=== PATIENT | female | born 1960 | race Caucasian/White ===

== ENCOUNTER 2021-11-22 14:04 | Inpatient (IN) | payer SELFPAY ==
[2021-11-22 14:32] LABS: #Basophils 0.1 thou/uL (0.0-0.2); #Eosinphils 0.2 thou/uL (0.0-0.7); #Lymphocytes 2.3 thou/uL (1.20-3.40); #Monocytes 0.6 thou/uL (0.11-0.59); %Basophils 1.1 % (0.0-1.0); %Eosinophils 2.2 % (0.0-10.0); %Lymphocytes 27.7 % (21.0-51.0); %Monocytes 7.2 % (0.0-10.0); %Neutrophils 61.9 % (42.0-75.0); Hemoglobin 14.9 g/dL (12.0-16.0); Mean Corpuscular HGB CONC 35.3 g/dL (32.0-36.0); Mean Corpuscular Hemoglobin 34.5 pg (27.0-31.0); Mean Corpuscular Volume 97.8 fL (78.0-98.0); Mean Platelet Volume 5.9 fL (7.4-10.4); Platelet Count 294 thou/uL (130-400); RBC Distribution Width 11.3 % (11.5-14.5); Red Blood Cell (RBC) Count 4.32 mill/uL (4.20-5.40); White Blood Cell (WBC) Count 8.1 thou/uL (4.8-10.8)
[2021-11-22 14:44] LABS: INR-International Normal Ratio 0.9; Prothrombin Time 12.5 sec (12.0-14.7)
[2021-11-22 14:45] LABS: PTT 40.5 sec (22.9-36.1)
[2021-11-22 15:01] LABS: Bacteria/HPF None Seen HPF (None Seen); Bilirubin Negative (Negative); Blood, Urine 1+ (Negative); Clarity Clear (Clear); Glucose, Urine (Dipstick) Normal (Negative); Ketone, Urine Negative (Negative); Leukocyte Negative Leu/uL (Negative); Nitrite Negative (Negative); Protein, Urine (Dipstick) Negative (Neg-Trace); Specific Gravity, Urine 1.022 (1.002-1.036); Squamous Epithelial 0-3 HPF (0-3); Urobilinogen Normal mg/dL (Less than 2); WBC/HPF 0-3 HPF (0-3); pH, Urine 5.5 (5.0-9.0)
[2021-11-22 15:48] LABS: ALT (SGPT) 7 U/L (8-55); AST (SGOT) 15 U/L (5-34); Albumin 4.1 g/dL (3.4-4.8); Alkaline Phosphatase 94 U/L (40-110); Anion Gap 14 mmol/L (10-20); BUN (Urea Nitrogen) 12 mg/dL (9.8-20.1); Bilirubin, Total 0.2 mg/dL (0.2-1.2); CK (CPK) 135 U/L (29-168); Calc. Creatinine Clearance 0 mL/min (70-130); Calcium 9.7 mg/dL (7.8-10.44); Carbon Dioxide 21 mmol/L (23-31); Chloride 105 mmol/L (98-107); Globulin 2.9 g/dL (2.4-3.5); Glucose 108 mg/dL (80-115); Potassium 3.9 mmol/L (3.5-5.1); Sodium 136 mmol/L (136-145)
[2021-11-22] MEDS ORDERED: Aspirin Chewable 81 MG TAB ONE (17:34)
[2021-11-22] MEDS ORDERED: Bisacodyl 10 MG SUPP PR PRN (17:45)
[2021-11-22] MEDS ORDERED: Acetaminophen 325 MG TAB PO PRN (17:45)
[2021-11-22] MEDS ORDERED: Ondansetron PF 4 MG/2 ML Vial IVP PRN (17:45)
[2021-11-22] MEDS ORDERED: Bisacodyl 5 MG TAB PO PRN (17:45)
[2021-11-22] MEDS ORDERED: Melatonin 3 MG TAB PO PRN (17:51)
[2021-11-22] MEDS ORDERED: hydrALAZINE 20 MG/ML VIAL SLOW IVP PRN (17:51)
[2021-11-22] MEDS ORDERED: Nitroglycerin 0.4 MG TAB (25 Tab Bottle) SL PRN (18:21)
[2021-11-22 18:44] LABS: Troponin I Less than 0.010 ng/mL (< 0.028)
[2021-11-22 19:05] VITALS: BMI 21.6
[2021-11-22] MEDS: Pantoprazole 40 MG VIAL IVP SCH (19:26)
[2021-11-22] MEDS: Nicotine 21 MG PATCH TD SCH (19:27)
[2021-11-22] MEDS: Sodium Chloride 0.9% 1,000 ML IV SCH (19:27)
[2021-11-22 21:47] LABS: Troponin I Less than 0.010 ng/mL (< 0.028)
[2021-11-22] MEDS: Enoxaparin Sodium 40 MG/0.4 ML SYRINGE SC SCH (21:52)
[2021-11-22 22:59] LABS: SARS-CoV-2 PCR by NAA Not Detected (NotDetected)
[2021-11-23 04:41] LABS: #Basophils 0.1 thou/uL (0.0-0.2); #Eosinphils 0.1 thou/uL (0.0-0.7); #Lymphocytes 2.5 thou/uL (1.20-3.40); #Monocytes 0.5 thou/uL (0.11-0.59); #Neutrophils 3.8 thou/uL (1.40-6.50); %Basophils 1.1 % (0.0-1.0); %Lymphocytes 35.9 % (21.0-51.0); %Monocytes 7.6 % (0.0-10.0); %Neutrophils 53.4 % (42.0-75.0); Hemoglobin 13.9 g/dL (12.0-16.0); Mean Corpuscular HGB CONC 34.3 g/dL (32.0-36.0); Mean Corpuscular Hemoglobin 33.8 pg (27.0-31.0); Mean Corpuscular Volume 98.5 fL (78.0-98.0); Mean Platelet Volume 5.7 fL (7.4-10.4); Platelet Count 258 thou/uL (130-400); RBC Distribution Width 11.4 % (11.5-14.5); Red Blood Cell (RBC) Count 4.11 mill/uL (4.20-5.40); White Blood Cell (WBC) Count 7.1 thou/uL (4.8-10.8)
[2021-11-23 05:18] LABS: ALT (SGPT) Less than 7 U/L (8-55); AST (SGOT) 13 U/L (5-34); Albumin 3.6 g/dL (3.4-4.8); Alkaline Phosphatase 77 U/L (40-110); Anion Gap 14 mmol/L (10-20); BUN (Urea Nitrogen) 12 mg/dL (9.8-20.1); Bilirubin, Total 0.2 mg/dL (0.2-1.2); Calc. Creatinine Clearance 58 mL/min (70-130); Carbon Dioxide 21 mmol/L (23-31); Cardiac Risk 4.7 (Less than 4.5); Chloride 109 mmol/L (98-107); Cholesterol 198 mg/dl (< 200 Desired); Globulin 2.4 g/dL (2.4-3.5); Glucose 103 mg/dL (80-115); HDL Cholesterol 42 mg/dL (>60 Neg Risk); LDL Cholesterol, Calculated 125 mg/dL; Potassium 4.1 mmol/L (3.5-5.1); Sodium 140 mmol/L (136-145); Triglycerides 153 mg/dL (Less than 150)
[2021-11-23] MEDS: Sodium Chloride 0.9% 1,000 ML IV SCH (07:41)
[2021-11-23] MEDS: Enoxaparin Sodium 40 MG/0.4 ML SYRINGE SC SCH ×2 (07:41→20:52)
[2021-11-23] MEDS: Pantoprazole 40 MG VIAL IVP SCH (07:41)
[2021-11-23] MEDS ORDERED: Regadenoson 0.4 MG/5 ML SYRINGE ONE (13:55)
[2021-11-23] MEDS: Nicotine 21 MG PATCH TD SCH (18:39)
[2021-11-24] MEDS: Enoxaparin Sodium 40 MG/0.4 ML SYRINGE SC SCH ×2 (08:37→19:45)
[2021-11-24] MEDS ORDERED: Communication Order-Pharmacy FS SCH (10:30)
[2021-11-24] MEDS: Metoprolol Tartrate 25 MG TAB PO SCH (16:23)
[2021-11-24] MEDS: Nicotine 21 MG PATCH TD SCH (16:27)
[2021-11-25] MEDS: Metoprolol Tartrate 25 MG TAB PO SCH ×2 (05:56→16:50)
[2021-11-25] MEDS ORDERED: Verapamil 5 MG/2 ML VIAL ONE (06:31)
[2021-11-25] MEDS ORDERED: Nitroglycerin 100MG/250ML BOT 250 ML ONE (06:31)
[2021-11-25] MEDS ORDERED: Heparin 10,000 UNITS/ 10 ML VIAL ONE (06:31)
[2021-11-25] MEDS ORDERED: Midazolam HCl 2 mg/2 ml Vial ONE (07:05)
[2021-11-25] MEDS ORDERED: Fentanyl 100 MCG/2 ML VIAL ONE (07:05)
[2021-11-25] MEDS ORDERED: Lidocaine 1% (PF) 30 ML VIAL ONE (07:07)
[2021-11-25] MEDS ORDERED: Enoxaparin Sodium 60 MG/0.6 ML SYRINGE SC SCH (08:15)
[2021-11-25] MEDS ORDERED: Iopamidol 370 76% 100 ML VIAL ONE (09:04)
[2021-11-25] MEDS ORDERED: Sodium Chloride 0.9% 200 ML IV PRN (09:13)
[2021-11-25] MEDS ORDERED: Nitroglycerin 0.4 MG TAB (25 Tab Bottle) SL PRN (09:13)
[2021-11-25] MEDS ORDERED: Acetaminophen/Codeine 30-300mg Tablet PO PRN ×2 (09:13)
[2021-11-25] MEDS: Enoxaparin Sodium 60 MG/0.6 ML SYRINGE SC SCH ×2 (10:03→21:49)
[2021-11-25] MEDS ORDERED: Communication Order-Pharmacy FS ONE (12:05)
[2021-11-25 12:11] LABS: Anion Gap 14 mmol/L (10-20); BUN (Urea Nitrogen) 10 mg/dL (9.8-20.1); Calc. Creatinine Clearance 57 mL/min (70-130); Calcium 9.7 mg/dL (7.8-10.44); Carbon Dioxide 23 mmol/L (23-31); Chloride 102 mmol/L (98-107); Glucose 98 mg/dL (80-115); Potassium 4.3 mmol/L (3.5-5.1); Sodium 135 mmol/L (136-145)
[2021-11-25] MEDS ORDERED: Communication Order-Pharmacy FS SCH (15:15)
[2021-11-25] MEDS: Nicotine 21 MG PATCH TD SCH (16:51)
[2021-11-26 08:30] LABS: Anion Gap 12 mmol/L (10-20); BUN (Urea Nitrogen) 11 mg/dL (9.8-20.1); Calc. Creatinine Clearance 57 mL/min (70-130); Calcium 9.8 mg/dL (7.8-10.44); Carbon Dioxide 26 mmol/L (23-31); Chloride 103 mmol/L (98-107); Glucose 101 mg/dL (80-115); Potassium 4.3 mmol/L (3.5-5.1); Sodium 137 mmol/L (136-145)
[2021-11-26] MEDS: Enoxaparin Sodium 60 MG/0.6 ML SYRINGE SC SCH ×2 (08:47→19:50)
[2021-11-26] MEDS: Metoprolol Tartrate 25 MG TAB PO SCH ×2 (08:48→17:43)
[2021-11-26] MEDS: Nicotine 21 MG PATCH TD SCH (17:43)
[2021-11-26] MEDS ORDERED: ceFAZolin (BATCH) 2 GM in Premix Bag 1 BAG IVPB SCH (20:00)
[2021-11-27 05:28] LABS: Anion Gap 12 mmol/L (10-20); BUN (Urea Nitrogen) 16 mg/dL (9.8-20.1); Calc. Creatinine Clearance 55 mL/min (70-130); Calcium 10.1 mg/dL (7.8-10.44); Carbon Dioxide 25 mmol/L (23-31); Chloride 101 mmol/L (98-107); Glucose 111 mg/dL (80-115); Potassium 4.3 mmol/L (3.5-5.1); Sodium 134 mmol/L (136-145)
[2021-11-27] MEDS: Metoprolol Tartrate 25 MG TAB PO SCH (07:05)
[2021-11-27] MEDS ORDERED: Albumin 5% 500 ML ONE (08:20)
[2021-11-27] MEDS ORDERED: Fentanyl 250 MCG/5 ML VIAL ONE ×2 (11:09→12:24)
[2021-11-27] MEDS ORDERED: Midazolam HCl 5 mg/5 ml Vial ONE (11:10)
[2021-11-27] MEDS ORDERED: Lidocaine 1% MPF 2 ML VIAL ONE (11:39)
[2021-11-27] MEDS ORDERED: Heparin 30,000 units/30 ml VIAL ONE (12:25)
[2021-11-27] MEDS ORDERED: Esmolol 100 MG/10 ML VIAL ONE (12:25)
[2021-11-27] MEDS ORDERED: Papaverine 60 MG/2 ML VIAL ONE (12:25)
[2021-11-27] MEDS ORDERED: Rocuronium Bromide 10 MG/ML (10ML VIAL) ONE (12:25)
[2021-11-27] MEDS ORDERED: Calcium Chloride 1 GM/10 ML Abboject SYRINGE ONE (12:25)
[2021-11-27] MEDS ORDERED: PHENYLEPHRINE-NS 100 MCG/ML 10 ML SYRINGE ONE (12:25)
[2021-11-27] MEDS ORDERED: PROPOFOL 200 MG/20 ML VIAL ONE (12:25)
[2021-11-27] MEDS ORDERED: Cardioplegic Soln 1,000 ML BAG ONE (12:25)
[2021-11-27] MEDS ORDERED: Aminocaproic Acid 5 GM/20 ML VIAL ONE (12:25)
[2021-11-27] MEDS ORDERED: Thrombin 5000 UNITS/5 ML VIAL ONE (12:25)
[2021-11-27] MEDS ORDERED: Protamine Sulfate 50 MG/5 ML VIAL ONE (12:25)
[2021-11-27] MEDS ORDERED: Bisacodyl 5 MG TAB PO PRN (14:04)
[2021-11-27] MEDS ORDERED: Guaifenesin DM 100-10/5 ML UDCUP PO PRN (14:04)
[2021-11-27] MEDS ORDERED: Bisacodyl 10 MG SUPP PR PRN (14:04)
[2021-11-27] MEDS ORDERED: Promethazine HCl 25 MG/ML VIAL IM PRN (14:04)
[2021-11-27] MEDS ORDERED: ceFAZolin (BATCH) 2 GM in Premix Bag 1 BAG IVPB SCH (14:04)
[2021-11-27] MEDS ORDERED: DOPamine 400 MG/D5W 250 ML 250 ML IVPB PRN (14:04)
[2021-11-27] MEDS ORDERED: Potassium Chloride 20 MEQ/100 ML PREMIX BAG IVPB PRN (14:04)
[2021-11-27] MEDS ORDERED: Hetastarch 6% 500 ML 500 ML IVPB PRN (14:04)
[2021-11-27] MEDS ORDERED: Post-Op Insulin Drip Protocol IVPB ONE (14:04)
[2021-11-27] MEDS ORDERED: Mag-Al 1200 mg/1200 mg/30 ML UDCUP PO PRN (14:04)
[2021-11-27] MEDS ORDERED: Norepinephrine 8 MG/0.9% NS 250 ML IVPB PRN (14:04)
[2021-11-27] MEDS ORDERED: hydrALAZINE 20 MG/ML VIAL SLOW IVP PRN (14:04)
[2021-11-27] MEDS ORDERED: Nitroglycerin 50 MG/250 ML BOT 250 ML IVPB PRN (14:04)
[2021-11-27] MEDS ORDERED: niCARdipine 25 MG in Sodium Chloride 0.9% 250 ML 250 ML IVPB PRN (14:04)
[2021-11-27] MEDS ORDERED: Acetaminophen 325 MG TAB PO PRN (14:04)
[2021-11-27 14:26] LABS: Actual Bicarbonate (HCO3a) 20.2 mEq/L (22-28); Base Excess (BEa) -4.1 mEq/L (-2.0 to +3.0); CO2 Tension 34.5 mmHg (35.0-45.0); Calcium, Ionized (arterial) 1.13 mmol/L (1.12-1.30); Carboxyhemoglobin (COHb) 0.1 gm% (0.0-3.0); Hemoglobin (Hb) 12.4 g/dL (12.0-16.0); O2 Tension (PaO2), arterial 134.4 mmHg (> 80.0); Potassium - ABG Lab 4.24 mmol/L (3.70-5.30); pH, Arterial 7.39 (7.35-7.45)
[2021-11-27 14:28] LABS: ALV-art Gradient 250.275 mmHg (0-20); Puncture Site Arterial Line
[2021-11-27] MEDS ORDERED: HUMULIN R 100 UNITS in Sodium Chloride 0.9% 100 ML IVPB SCH (14:30)
[2021-11-27] MEDS ORDERED: Dextrose 5% in Water 1,000 ML IV PRN (14:30)
[2021-11-27] MEDS ORDERED: Dextrose 50% Abboject 50 ML SYRINGE SLOW IVP PRN (14:30)
[2021-11-27 14:33] LABS: #Eosinphils 0.1 thou/uL (0.0-0.7); #Lymphocytes 1.4 thou/uL (1.20-3.40); #Monocytes 0.4 thou/uL (0.11-0.59); #Neutrophils 6.8 thou/uL (1.40-6.50); %Basophils 0.4 % (0.0-1.0); %Lymphocytes 16.1 % (21.0-51.0); %Neutrophils 77.6 % (42.0-75.0); Hemoglobin 12.2 g/dL (12.0-16.0); Mean Corpuscular HGB CONC 34.2 g/dL (32.0-36.0); Mean Corpuscular Hemoglobin 33.5 pg (27.0-31.0); Mean Platelet Volume 5.8 fL (7.4-10.4); Platelet Count 240 thou/uL (130-400); Red Blood Cell (RBC) Count 3.64 mill/uL (4.20-5.40); White Blood Cell (WBC) Count 8.7 thou/uL (4.8-10.8)
[2021-11-27] MEDS: Lactated Ringer's 1,000 ML IV SCH (14:42)
[2021-11-27 14:43] LABS: Prothrombin Time 13.5 sec (12.0-14.7)
[2021-11-27 14:45] LABS: PTT 46.7 sec (22.9-36.1)
[2021-11-27] MEDS: Morphine 2 MG/ML VIAL SLOW IVP PRN ×2 (14:52→15:23)
[2021-11-27 15:10] LABS: Anion Gap 10 mmol/L (10-20); BUN (Urea Nitrogen) 13 mg/dL (9.8-20.1); Calc. Creatinine Clearance 60 mL/min (70-130); Calcium 8.3 mg/dL (7.8-10.44); Carbon Dioxide 22 mmol/L (23-31); Chloride 108 mmol/L (98-107); Glucose 115 mg/dL (80-115); Potassium 4.3 mmol/L (3.5-5.1); Sodium 136 mmol/L (136-145)
[2021-11-27] MEDS: Fentanyl 100 MCG/2 ML VIAL SLOW IVP PRN ×2 (15:10→21:21)
[2021-11-27] MEDS: Insulin Regular 300 UNITS/3 ML VIAL SC PRN ×2 (16:09→19:51)
[2021-11-27] MEDS: Ketorolac Tromethamine 30 MG/ML VIAL IVP SCH ×2 (17:38→23:18)
[2021-11-27] MEDS: ceFAZolin (BATCH) 2 GM in Premix Bag 1 BAG IVPB SCH (19:46)
[2021-11-27] MEDS: Ondansetron PF 4 MG/2 ML Vial IVP PRN (20:03)
[2021-11-27 20:46] LABS: Hemoglobin 11.4 g/dL (12.0-16.0)
[2021-11-27 21:00] LABS: Potassium 4.2 mmol/L (3.5-5.1)
[2021-11-27] MEDS ORDERED: Famotidine/PF 20 mg/2ml Vial SLOW IVP SCH (21:00)
[2021-11-27 23:09] LABS: Actual Bicarbonate (HCO3a) 19.9 mEq/L (22-28); Base Excess (BEa) -5.1 mEq/L (-2.0 to +3.0); CO2 Tension 37.2 mmHg (35.0-45.0); Calcium, Ionized (arterial) 1.14 mmol/L (1.12-1.30); Carboxyhemoglobin (COHb) 0.1 gm% (0.0-3.0); Hemoglobin (Hb) 11.9 g/dL (12.0-16.0); O2 Tension (PaO2), arterial 84.9 mmHg (> 80.0); Potassium - ABG Lab 4.34 mmol/L (3.70-5.30); pH, Arterial 7.35 (7.35-7.45)
[2021-11-27 23:26] LABS: Puncture Site Arterial Line
[2021-11-27] MEDS: Simvastatin 10 MG TAB PO SCH (23:59)
[2021-11-28] MEDS: Lactated Ringer's 1,000 ML IV SCH ×2 (02:03→15:56)
[2021-11-28] MEDS: traMADol HCl 50 MG TAB PO PRN ×4 (03:40→20:16)
[2021-11-28] MEDS: ceFAZolin (BATCH) 2 GM in Premix Bag 1 BAG IVPB SCH ×2 (03:40→11:25)
[2021-11-28 04:02] LABS: #Eosinphils 0.1 thou/uL (0.0-0.7); #Lymphocytes 1.6 thou/uL (1.20-3.40); #Monocytes 0.7 thou/uL (0.11-0.59); %Basophils 0.4 % (0.0-1.0); %Eosinophils 0.6 % (0.0-10.0); %Monocytes 7.3 % (0.0-10.0); %Neutrophils 74.7 % (42.0-75.0); Hemoglobin 11.4 g/dL (12.0-16.0); Mean Corpuscular Hemoglobin 33.6 pg (27.0-31.0); Mean Corpuscular Volume 98.8 fL (78.0-98.0); Mean Platelet Volume 5.9 fL (7.4-10.4); Platelet Count 256 thou/uL (130-400); Red Blood Cell (RBC) Count 3.39 mill/uL (4.20-5.40); White Blood Cell (WBC) Count 9.4 thou/uL (4.8-10.8)
[2021-11-28 04:19] LABS: Anion Gap 12 mmol/L (10-20); BUN (Urea Nitrogen) 13 mg/dL (9.8-20.1); Calc. Creatinine Clearance 62 mL/min (70-130); Calcium 8.6 mg/dL (7.8-10.44); Carbon Dioxide 21 mmol/L (23-31); Chloride 108 mmol/L (98-107); Glucose 98 mg/dL (80-115); Potassium 4.3 mmol/L (3.5-5.1); Sodium 137 mmol/L (136-145)
[2021-11-28] MEDS: Ketorolac Tromethamine 30 MG/ML VIAL IVP SCH ×3 (06:16→18:05)
[2021-11-28] MEDS: Aspirin 325 MG TAB PO SCH (07:38)
[2021-11-28] MEDS: Famotidine 20 MG TAB PO SCH ×2 (07:38→21:32)
[2021-11-28] MEDS: Polyethylene Glycol 3350 17 GM Packet PO SCH (08:46)
[2021-11-28] MEDS ORDERED: Mineral Oil ENEMA PR PRN (10:11)
[2021-11-28] MEDS ORDERED: Nitroglycerin 0.4 MG TAB (25 Tab Bottle) SL PRN (10:11)
[2021-11-28] MEDS: Ondansetron PF 4 MG/2 ML Vial IVP PRN (11:25)
[2021-11-28] MEDS ORDERED: Insulin Glargine 30 UNITS/0.3 ML VIAL SC PRN (14:26)
[2021-11-28] MEDS: Fentanyl 100 MCG/2 ML VIAL SLOW IVP PRN ×2 (15:24→22:19)
[2021-11-28] MEDS: Simvastatin 10 MG TAB PO SCH (21:33)
[2021-11-29] MEDS: Ketorolac Tromethamine 30 MG/ML VIAL IVP SCH ×4 (00:03→17:47)
[2021-11-29] MEDS: traMADol HCl 50 MG TAB PO PRN ×3 (09:37→20:55)
[2021-11-29] MEDS: Aspirin 325 MG TAB PO SCH (09:37)
[2021-11-29] MEDS: Famotidine 20 MG TAB PO SCH ×2 (09:37→20:55)
[2021-11-29] MEDS: Furosemide 40 MG TAB PO SCH (09:37)
[2021-11-29] MEDS: Polyethylene Glycol 3350 17 GM Packet PO SCH (09:38)
[2021-11-29] MEDS ORDERED: Metoprolol Tartrate 25 MG TAB PO SCH (10:15)
[2021-11-29] MEDS: Simvastatin 10 MG TAB PO SCH (20:55)
[2021-11-29] MEDS: buPROPion HCl 100 MG TAB PO SCH (20:55)
[2021-11-29] MEDS: Metoprolol Tartrate 25 MG TAB PO SCH (20:55)
[2021-11-30] MEDS: Ketorolac Tromethamine 30 MG/ML VIAL IVP SCH ×4 (00:16→18:15)
[2021-11-30 09:03] LABS: #Eosinphils 0.1 thou/uL (0.0-0.7); #Lymphocytes 1.5 thou/uL (1.20-3.40); #Monocytes 0.7 thou/uL (0.11-0.59); #Neutrophils 5.8 thou/uL (1.40-6.50); %Basophils 0.3 % (0.0-1.0); %Eosinophils 1.4 % (0.0-10.0); %Lymphocytes 18.4 % (21.0-51.0); %Neutrophils 71.9 % (42.0-75.0); Hemoglobin 12.5 g/dL (12.0-16.0); Mean Corpuscular HGB CONC 33.4 g/dL (32.0-36.0); Mean Corpuscular Hemoglobin 33.9 pg (27.0-31.0); Mean Platelet Volume 5.9 fL (7.4-10.4); Platelet Count 281 thou/uL (130-400); RBC Distribution Width 11.1 % (11.5-14.5); Red Blood Cell (RBC) Count 3.69 mill/uL (4.20-5.40); White Blood Cell (WBC) Count 8.1 thou/uL (4.8-10.8)
[2021-11-30 09:19] LABS: Anion Gap 16 mmol/L (10-20); BUN (Urea Nitrogen) 15 mg/dL (9.8-20.1); Calc. Creatinine Clearance 60 mL/min (70-130); Calcium 9.4 mg/dL (7.8-10.44); Carbon Dioxide 22 mmol/L (23-31); Chloride 102 mmol/L (98-107); Glucose 94 mg/dL (80-115); Potassium 3.9 mmol/L (3.5-5.1); Sodium 136 mmol/L (136-145)
[2021-11-30] MEDS: Aspirin 325 MG TAB PO SCH (10:25)
[2021-11-30] MEDS: Metoprolol Tartrate 25 MG TAB PO SCH ×2 (10:25→20:31)
[2021-11-30] MEDS: buPROPion HCl 100 MG TAB PO SCH (10:25)
[2021-11-30] MEDS: Famotidine 20 MG TAB PO SCH ×2 (10:25→20:31)
[2021-11-30] MEDS: Furosemide 40 MG TAB PO SCH (10:26)
[2021-11-30] MEDS: Polyethylene Glycol 3350 17 GM Packet PO SCH (10:26)
[2021-11-30] MEDS: traMADol HCl 50 MG TAB PO PRN ×2 (10:31→20:32)
[2021-11-30] MEDS: Simvastatin 10 MG TAB PO SCH (20:31)
[2021-12-01] MEDS: Ketorolac Tromethamine 30 MG/ML VIAL IVP SCH ×4 (00:04→17:23)
[2021-12-01] MEDS: Aspirin 325 MG TAB PO SCH (09:00)
[2021-12-01] MEDS: Famotidine 20 MG TAB PO SCH ×2 (09:01→20:43)
[2021-12-01] MEDS: Furosemide 40 MG TAB PO SCH (09:01)
[2021-12-01] MEDS: Bupropion 150 MG XL TAB PO SCH (09:01)
[2021-12-01] MEDS: Metoprolol Tartrate 25 MG TAB PO SCH ×2 (09:02→20:43)
[2021-12-01] MEDS: Polyethylene Glycol 3350 17 GM Packet PO SCH (09:04)
[2021-12-01] MEDS: Simvastatin 10 MG TAB PO SCH (20:55)
[2021-12-01] MEDS: traMADol HCl 50 MG TAB PO PRN (20:55)
[2021-12-02] MEDS: Ketorolac Tromethamine 30 MG/ML VIAL IVP SCH ×3 (00:34→12:00)
[2021-12-02] MEDS: Bupropion 150 MG XL TAB PO SCH (09:29)
[2021-12-02] MEDS: Metoprolol Tartrate 25 MG TAB PO SCH (09:29)
[2021-12-02] MEDS: Furosemide 40 MG TAB PO SCH (09:29)
[2021-12-02] MEDS: Aspirin 325 MG TAB PO SCH (09:31)
[2021-12-02] MEDS: Polyethylene Glycol 3350 17 GM Packet PO SCH (09:31)
[2021-12-02] MEDS: Famotidine 20 MG TAB PO SCH (09:31)
[2021-12-02 14:39] VITALS: BP 140/72; TEMP 97.2
[2021-12-03 13:39] LABS: Actual Bicarbonate (HCO3a) 22.4 mEq/L (22-28); Analyzer IN Cardio OR; Base Excess (BEa) -2.6 mEq/L (-2.0 to +3.0); CO2 Tension 39.4 mmHg (35.0-45.0); Calcium, Ionized (arterial) 1.13 mmol/L (1.12-1.30); Carboxyhemoglobin (COHb) 0.1 gm% (0.0-3.0); Hemoglobin (Hb) 12.1 g/dL (12.0-16.0); O2 Tension (PaO2), arterial 412.7 mmHg (> 80.0); Potassium - ABG Lab 4.17 mmol/L (3.70-5.30); pH, Arterial 7.37 (7.35-7.45)
[2021-12-03 13:39] LABS: Actual Bicarbonate (HCO3a) 22.1 mEq/L (22-28); Analyzer IN Cardio OR; Base Excess (BEa) -2.4 mEq/L (-2.0 to +3.0); CO2 Tension 37.5 mmHg (35.0-45.0); Calcium, Ionized (arterial) 1.16 mmol/L (1.12-1.30); Carboxyhemoglobin (COHb) 0.5 gm% (0.0-3.0); Hemoglobin (Hb) 12.5 g/dL (12.0-16.0); O2 Tension (PaO2), arterial 315.1 mmHg (> 80.0); Potassium - ABG Lab 4.09 mmol/L (3.70-5.30); pH, Arterial 7.39 (7.35-7.45)
[2021-12-03 13:40] LABS: Puncture Site Arterial Line
[2021-12-03 13:40] LABS: Analyzer IN Cardio OR; Base Excess (BEa) 0.1 mEq/L (-2.0 to +3.0); CO2 Tension 32.2 mmHg (35.0-45.0); Calcium, Ionized (arterial) 1.15 mmol/L (1.12-1.30); Carboxyhemoglobin (COHb) 0.7 gm% (0.0-3.0); Hemoglobin (Hb) 13.2 g/dL (12.0-16.0); O2 Tension (PaO2), arterial 434.7 mmHg (> 80.0); Potassium - ABG Lab 3.99 mmol/L (3.70-5.30); Puncture Site Arterial Line; pH, Arterial 7.47 (7.35-7.45)
[2021-12-03 13:41] LABS: Puncture Site Arterial Line
== END 2021-12-02 14:40 | disposition home or self-care (01) | DRG 234 ==
LOC: ERS 14:04 → 2SW 17:39 → OBSVTOIN 11-24 16:49 → CCU 11-27 10:53 → 2NO 11-28 10:59
PROVIDERS: ADMIT Internal Medicine; ATTEND Internal Medicine
PROC: 4A023N7 Measurement of Cardiac Sampling and Pressure, Left Heart, Percutaneous Approach (ICD-10-PCS; 2021-11-25)
PROC: B2111ZZ Fluoroscopy of Multiple Coronary Arteries using Low Osmolar Contrast (ICD-10-PCS; 2021-11-25)
PROC: B2151ZZ Fluoroscopy of Left Heart using Low Osmolar Contrast (ICD-10-PCS; 2021-11-25)
PROC: 02HV33Z Insertion of Infusion Device into Superior Vena Cava, Percutaneous Approach (ICD-10-PCS; principal; 2021-11-27)
PROC: 02100Z9 Bypass Coronary Artery, One Artery from Left Internal Mammary, Open Approach (ICD-10-PCS; 2021-11-27)
DX: I25.110 Atherosclerotic heart disease of native coronary artery with unstable angina pectoris (principal); K92.1 Melena; I25.89 Other forms of chronic ischemic heart disease; G89.29 Other chronic pain; F17.210 Nicotine dependence, cigarettes, uncomplicated; J44.9 Chronic obstructive pulmonary disease, unspecified; H53.2 Diplopia; R51.9 Headache, unspecified; M54.50 Low back pain, unspecified; R31.0 Gross hematuria; E78.2 Mixed hyperlipidemia; R09.89 Other specified symptoms and signs involving the circulatory and respiratory systems; E78.00 Pure hypercholesterolemia, unspecified; I45.10 Unspecified right bundle-branch block; K80.20 Calculus of gallbladder without cholecystitis without obstruction; Z20.822 Contact with and (suspected) exposure to COVID-19; Z79.02 Long term (current) use of antithrombotics/antiplatelets; Z88.2 Allergy status to sulfonamides; I25.2 Old myocardial infarction; Z86.73 Personal history of transient ischemic attack (TIA), and cerebral infarction without residual deficits; Z95.5 Presence of coronary angioplasty implant and graft; Z88.5 Allergy status to narcotic agent; Z88.8 Allergy status to other drugs, medicaments and biological substances; Z98.891 History of uterine scar from previous surgery; Z82.49 Family history of ischemic heart disease and other diseases of the circulatory system; Z80.0 Family history of malignant neoplasm of digestive organs; Z80.3 Family history of malignant neoplasm of breast; Z71.6 Tobacco abuse counseling
CPT/HCPCS: 36415; 36416; 36430; 70450; 70551; 71045; 74176; 78452; 80048; 80053; 80061; 81003; 81015; 82550; 82805; 83880; 83970; 84443; 84484; 85025; 85610; 85730; 86850; 86900; 86901; 87086; 93005; 93010; 93017; 93458; 93798; 93880; 94002; 94760; 96372; 96374; 96376; 97139; 99152; 99153; A9500; C1751; C9113; G0378; J0280; J0690; J1644; J1650; J1815; J1885; J2001; J2250; J2270; J2405; J2440; J2704; J2720; J2785; J3010; J3370; J7050; J7120; P9045; Q9967; S0017; S0028; U0003; U0005

== ENCOUNTER 2022-02-03 18:18 | Emergency (ER) | payer SELFPAY ==
[2022-02-03 19:25] LABS: Hemoglobin 11.9 g/dL (12.0-16.0); Mean Corpuscular Hemoglobin 33.2 pg (27.0-31.0); Mean Corpuscular Volume 97.6 fL (78.0-98.0); Platelet Count 165 thou/uL (130-400); RBC Distribution Width 11.6 % (11.5-14.5); Red Blood Cell (RBC) Count 3.59 mill/uL (4.20-5.40); White Blood Cell (WBC) Count 3.6 thou/uL (4.8-10.8)
[2022-02-03 19:36] LABS: ALT (SGPT) 23 U/L (8-55); AST (SGOT) 37 U/L (5-34); Albumin 3.6 g/dL (3.4-4.8); Alkaline Phosphatase 81 U/L (40-110); Anion Gap 13 mmol/L (10-20); BUN (Urea Nitrogen) 12 mg/dL (9.8-20.1); Bilirubin, Total 0.3 mg/dL (0.2-1.2); Calc. Creatinine Clearance 0 mL/min (70-130); Calcium 8.4 mg/dL (7.8-10.44); Carbon Dioxide 22 mmol/L (23-31); Chloride 106 mmol/L (98-107); Estimated GFR 64; Globulin 2.7 g/dL (2.4-3.5); Glucose 93 mg/dL (80-115); Lipase 45 U/L (8-78); Potassium 3.9 mmol/L (3.5-5.1); Protein, Total 6.3 g/dL (5.8-8.1); Sodium 137 mmol/L (136-145)
[2022-02-03 19:43] LABS: SARS-CoV-2 NAA Rapid Test DETECTED (NotDetected)
[2022-02-03 20:05] LABS: Band 8 % (5-11); Lymphocytes 19 % (21-51); MDiff Complete? YES; Monocytes 19 % (0-10); Neutrophil 53 % (42-75); Platelet Morphology Comment Appears Adequate; RBC Morphology Normal
== END 2022-02-03 20:25 | disposition home or self-care (01) ==
LOC: ERS 18:18
DX: U07.1 COVID-19 (principal); F17.210 Nicotine dependence, cigarettes, uncomplicated; I25.2 Old myocardial infarction
CPT/HCPCS: 36415; 71045; 80053; 83690; 84484; 85025; 93005; U0002

== ENCOUNTER 2023-06-24 10:42 | Inpatient (IN) | payer SELFPAY ==
[~2023-06-24 10:42] MED LIST: Iopamidol-370 76% 500 ML MDV (1 ML CHARGE) ONE
[2023-06-24 11:19] LABS: #Basophils 0.1 thou/uL (0.0-0.2); #Eosinphils 0.1 thou/uL (0.0-0.7); #Monocytes 0.7 thou/uL (0.11-0.59); #Neutrophils 5.5 thou/uL (1.40-6.50); %Basophils 0.8 % (0.0-1.0); %Eosinophils 1.5 % (0.0-10.0); %Lymphocytes 25.8 % (21.0-51.0); %Monocytes 7.8 % (0.0-10.0); %Neutrophils 63.7 % (42.0-75.0); Hematocrit 43.3 % (36.0-47.0); Mean Corpuscular HGB CONC 34.6 g/dL (32.0-36.0); Mean Corpuscular Hemoglobin 32.5 pg (27.0-31.0); Mean Corpuscular Volume 93.9 fl (78.0-98.0); Mean Platelet Volume 8.7 fL (7.4-10.4); Platelet Count 228 10x3/uL (130-400); RBC Distribution Width 11.9 % (11.5-14.5); Red Blood Cell (RBC) Count 4.61 mill/uL (4.20-5.40); White Blood Cell (WBC) Count 8.6 10x3/uL (4.8-10.8)
[2023-06-24 11:48] LABS: ALT (SGPT) 13 U/L (8-55); AST (SGOT) 19 U/L (5-34); Albumin 4.4 g/dL (3.4-4.8); Alkaline Phosphatase 93 U/L (40-110); Anion Gap 13 mmol/L (10-20); BUN (Urea Nitrogen) 10 mg/dL (9.8-20.1); Bilirubin, Total 0.5 mg/dL (0.2-1.2); Calc. Creatinine Clearance 0 mL/min (70-130); Calcium 9.8 mg/dL (7.8-10.44); Carbon Dioxide 24 mmol/L (23-31); Chloride 108 mmol/L (98-107); Estimated GFR 57; Globulin 2.8 g/dL (2.4-3.5); Glucose 92 mg/dL (80-115); Potassium 4.2 mmol/L (3.5-5.1); Protein, Total 7.2 g/dL (5.8-8.1); Sodium 141 mmol/L (136-145)
[2023-06-24 11:52] LABS: Troponin I Less than 0.010 ng/mL (< 0.028)
[2023-06-24] MEDS ORDERED: Aspirin Chewable 81 MG TAB ONE (14:37)
[2023-06-24 16:12] VITALS: BMI 21.2
[2023-06-24] MEDS ORDERED: Nitroglycerin 0.4 MG TAB (25 Tab Bottle) SL PRN (16:51)
[2023-06-24] MEDS ORDERED: Amlodipine 5 MG TAB PO PRN (16:55)
[2023-06-24 19:52] LABS: Magnesium 1.9 mg/dL (1.6-2.6)
[2023-06-24 19:54] LABS: Troponin I Less than 0.010 ng/mL (< 0.028)
[2023-06-24] MEDS: Rosuvastatin 20 MG TAB PO SCH (21:58)
[2023-06-24] MEDS: Metoprolol Tartrate 25 MG TAB PO SCH (22:06)
[2023-06-24] MEDS: Melatonin 3 MG TAB PO PRN (22:07)
[2023-06-24] MEDS ORDERED: Acetaminophen 500 MG TAB PO SCH (22:15)
[2023-06-24 23:14] LABS: Troponin I Less than 0.010 ng/mL (< 0.028)
[2023-06-25 04:49] LABS: Cardiac Risk 2.6 (Less than 4.5)
[2023-06-25] MEDS: Metoprolol Tartrate 25 MG TAB PO SCH ×2 (09:40→20:20)
[2023-06-25] MEDS: Aspirin 325 mg Enteric Coated Tablet PO SCH (09:40)
[2023-06-25] MEDS ORDERED: Folic Acid 1 MG TAB PO SCH (14:00)
[2023-06-25 14:39] LABS: Free T4 (Free Thyroxine) 0.91 ng/dL (0.70-1.48)
[2023-06-25] MEDS: Rosuvastatin 20 MG TAB PO SCH (20:20)
[2023-06-25] MEDS: Melatonin 3 MG TAB PO PRN (20:20)
[2023-06-26 04:28] LABS: Anion Gap 12 mmol/L (10-20); BUN (Urea Nitrogen) 14 mg/dL (9.8-20.1); Calc. Creatinine Clearance 57 mL/min (70-130); Calcium 9.6 mg/dL (7.8-10.44); Carbon Dioxide 25 mmol/L (23-31); Chloride 105 mmol/L (98-107); Estimated GFR 66; Glucose 99 mg/dL (80-115); Sodium 138 mmol/L (136-145)
[2023-06-26 08:06] VITALS: BP 113/66; TEMP 97.3
[2023-06-26] MEDS: Aspirin 325 mg Enteric Coated Tablet PO SCH (08:22)
[2023-06-26] MEDS: Metoprolol Tartrate 25 MG TAB PO SCH (08:22)
[2023-06-26] MEDS ORDERED: Folic Acid 1 MG TAB PO SCH (09:00)
[2023-06-27] MEDS ORDERED: FLU VACC QS2023-24(6MOS UP)/PF 60 MCG/0.5 ML SYRINGE IM ONE (09:00)
== END 2023-06-26 12:40 | disposition home or self-care (01) | DRG 149 ==
LOC: ERS 10:42 → 2NO 16:01 → OBSVTOIN 16:06 → 2SE 06-25 07:32
PROVIDERS: ADMIT Internal Medicine; ATTEND Internal Medicine Critical Care Medicine
DX: R42 Dizziness and giddiness (principal); I25.10 Atherosclerotic heart disease of native coronary artery without angina pectoris; E78.5 Hyperlipidemia, unspecified; I10 Essential (primary) hypertension; F41.9 Anxiety disorder, unspecified; R91.8 Other nonspecific abnormal finding of lung field; R16.0 Hepatomegaly, not elsewhere classified; I07.1 Rheumatic tricuspid insufficiency; Z95.1 Presence of aortocoronary bypass graft; Z95.5 Presence of coronary angioplasty implant and graft; Z79.899 Other long term (current) drug therapy; Z79.82 Long term (current) use of aspirin; I25.2 Old myocardial infarction; Z86.73 Personal history of transient ischemic attack (TIA), and cerebral infarction without residual deficits; Z87.891 Personal history of nicotine dependence
CPT/HCPCS: 36415; 70450; 70551; 71045; 71275; 74174; 80048; 80053; 80061; 83735; 84439; 84443; 84481; 84484; 85025; 85379; 93005; 93306; 93880; 94760; G0378; Q9967

== ENCOUNTER 2023-07-14 11:00 | Outpatient (CLI) | payer OTHER | END 2023-07-14 11:01 | LOC: PET 11:00 | PROVIDERS: ATTEND Nurse Practitioner Family | DX: R91.8 Other nonspecific abnormal finding of lung field (principal) | CPT/HCPCS: 78815; A9552 ==

== ENCOUNTER 2024-05-16 11:49 | Observation (INO) | payer OTHER, SELFPAY ==
[2024-05-16 12:37] LABS: #Basophils 0.06 10x3/uL (0.0-0.2); %Basophils 0.8 % (0.0-1.0); %Lymphocytes 25.6 % (21.0-51.0); %Monocytes 7.5 % (0.0-10.0); %Neutrophils 63.8 % (42.0-75.0); Hematocrit 39.3 % (36.0-47.0); Hemoglobin 13.1 g/dL (12.0-16.0); Mean Corpuscular HGB CONC 33.3 g/dL (32.0-36.0); Mean Corpuscular Hemoglobin 32.4 pg (27.0-31.0); Mean Corpuscular Volume 97.3 fL (78.0-98.0); Mean Platelet Volume 8.6 fL (7.4-10.4); Platelet Count 214 10x3/uL (130-400); RBC Distribution Width 11.9 % (11.5-14.5); Red Blood Cell (RBC) Count 4.04 mill/uL (4.20-5.40)
[2024-05-16 12:59] LABS: ALT (SGPT) 13 U/L (8-55); AST (SGOT) 19 U/L (5-34); Albumin 3.8 g/dL (3.4-4.8); Alkaline Phosphatase 77 U/L (40-110); Anion Gap 12 mmol/L (10-20); BUN (Urea Nitrogen) 7 mg/dL (9.8-20.1); Bilirubin, Total 0.4 mg/dL (0.2-1.2); Calc. Creatinine Clearance 0 mL/min (70-130); Calcium 9.8 mg/dL (7.8-10.44); Carbon Dioxide 24 mmol/L (23-31); Chloride 107 mmol/L (98-107); Estimated GFR 66; Globulin 2.8 g/dL (2.4-3.5); Glucose 101 mg/dL (80-115); Potassium 4.3 mmol/L (3.5-5.1); Protein, Total 6.6 g/dL (5.8-8.1); Sodium 139 mmol/L (136-145)
[2024-05-16 13:03] LABS: Troponin I Less than 0.010 ng/mL (< 0.028)
[2024-05-16] MEDS ORDERED: Acetaminophen 650 MG Suppository PR PRN (15:49)
[2024-05-16] MEDS ORDERED: Senokot S 8.6-50 MG TAB PO PRN (15:49)
[2024-05-16] MEDS ORDERED: Nitroglycerin 0.4 MG TAB (25 Tab Bottle) SL PRN (15:49)
[2024-05-16] MEDS ORDERED: Ondansetron PF 4 MG/2 ML Vial IVP PRN (15:49)
[2024-05-16] MEDS ORDERED: Ondansetron ODT 4 MG TAB PO PRN (15:49)
[2024-05-16] MEDS ORDERED: Acetaminophen 325 MG TAB PO PRN (15:49)
[2024-05-16 16:59] LABS: Magnesium 2.1 mg/dL (1.6-2.6)
[2024-05-16 17:01] LABS: Troponin I Less than 0.010 ng/mL (< 0.028)
[2024-05-16] MEDS: Lidocaine 2% Viscous Solution 10 ML, Aluminum & Magnesium Hydroxide 30 ML SSW SCH (18:30)
[2024-05-16 19:06] LABS: Troponin I Less than 0.010 ng/mL (< 0.028)
[2024-05-16] MEDS: Rosuvastatin 20 MG TAB PO SCH (19:57)
[2024-05-16] MEDS: Pantoprazole DR 40 MG TAB PO SCH (19:57)
[2024-05-16] MEDS: Metoprolol Tartrate 25 MG TAB PO SCH (21:55)
[2024-05-17 05:08] LABS: #Basophils 0.06 10x3/uL (0.0-0.2); %Basophils 0.8 % (0.0-1.0); %Eosinophils 2.6 % (0.0-10.0); %Lymphocytes 29.9 % (21.0-51.0); %Monocytes 8.4 % (0.0-10.0); Hematocrit 38.7 % (36.0-47.0); Hemoglobin 13.1 g/dL (12.0-16.0); Mean Corpuscular HGB CONC 33.9 g/dL (32.0-36.0); Mean Corpuscular Hemoglobin 32.2 pg (27.0-31.0); Mean Corpuscular Volume 95.1 fL (78.0-98.0); Mean Platelet Volume 8.9 fL (7.4-10.4); Platelet Count 200 10x3/uL (130-400); Red Blood Cell (RBC) Count 4.07 mill/uL (4.20-5.40)
[2024-05-17 05:23] LABS: Anion Gap 12 mmol/L (10-20); BUN (Urea Nitrogen) 10 mg/dL (9.8-20.1); Calc. Creatinine Clearance 0 mL/min (70-130); Calcium 9.2 mg/dL (7.8-10.44); Carbon Dioxide 23 mmol/L (23-31); Chloride 111 mmol/L (98-107); Estimated GFR 59; Glucose 101 mg/dL (80-115); Sodium 142 mmol/L (136-145)
[2024-05-17] MEDS: Aspirin 325 mg Enteric Coated Tablet PO SCH (09:07)
[2024-05-17] MEDS: Enoxaparin 40 MG (0.4 mL) SYRINGE SC SCH (09:08)
[2024-05-17] MEDS: FLU (Fluarix Triv) TS24-25(6MOS UP)/PF 45 MCG/0.5 ML Syringe IM ONE (09:08)
[2024-05-17 11:31] VITALS: BP 126/61; TEMP 98.5
== END 2024-05-17 18:20 | disposition home or self-care (01) ==
LOC: ERS 11:49 → ERHOLD 15:12 → 2NO 20:06
PROVIDERS: ADMIT Internal Medicine; ATTEND Family Medicine
PROC: B24BZZZ Ultrasonography of Heart with Aorta (ICD-10-PCS; principal; 2024-05-17)
DX: R07.89 Other chest pain (principal); I10 Essential (primary) hypertension; I25.10 Atherosclerotic heart disease of native coronary artery without angina pectoris; I25.2 Old myocardial infarction; E78.5 Hyperlipidemia, unspecified; Z95.1 Presence of aortocoronary bypass graft; Z95.5 Presence of coronary angioplasty implant and graft; Z86.73 Personal history of transient ischemic attack (TIA), and cerebral infarction without residual deficits; Z87.59 Personal history of other complications of pregnancy, childbirth and the puerperium; Z87.891 Personal history of nicotine dependence; Z88.5 Allergy status to narcotic agent; Z88.2 Allergy status to sulfonamides; Z79.82 Long term (current) use of aspirin; Z79.899 Other long term (current) drug therapy
CPT/HCPCS: 36415; 36416; 71045; 80048; 80053; 83735; 84443; 84484; 85025; 93005; 93306; 94760; 96372; G0378; J1650